=== PATIENT | male | born 1985 | race Caucasian/White ===

== ENCOUNTER 2016-12-24 14:37 | Emergency (ER) | payer SELFPAY ==
[2016-12-24] MEDS ORDERED: ORPHENADRINE CITRATE 60MG/2ML VIAL IM ONE (14:54)
[2016-12-24] MEDS ORDERED: KETOROLAC 30 MG/ML VIAL IM ONE (14:54)
[2016-12-24] MEDS ORDERED: DIAZEPAM 5 MG TABLET PO ONE (14:54)
--- NOTE | 2016-12-24 14:54 | Emergency Department Record ---
History of Present Illness - General Chief complaint: Extremity Problem Stated complaint: R SHOULDER PAIN Time Seen by Provider: 12/24/16 14:46 Source: Patient Mode of Arrival: Ambulatory Limitations: No limitations - History of Present Illness Initial comments: 31 yo male presents with shoulder pain The pain is in the posterior shoulder and gradually worsening. No injury. No warmth or rash. He has pain with lift the arm or turning the neck. MD Complaint: Extremity pain, Joint pain Onset/Timin -: Days(s) Location: Right, Shoulder History of Same: No -: Yes Myalgia Severity scale (1-10): 7 Quality: Sharp, Stabbing, Other Consistency: Constant, Getting worse Improves with: Immobilization Associated Symptoms: Denies other symptoms - Related Data Previous Rx's Medication Instructions Recorded Cyclobenzaprine HCl [Flexeril] 10 mg PO TID #30 tablet 03/21/16 Diazepam [Valium] 5 mg PO Q8H #15 tab 12/24/16 Methylprednisolone [Medrol Dose 0 mg PO UD #1 tab.ds.pk 12/24/16 Pack] Naproxen 500 mg PO BID #20 tablet 12/24/16 Allergies Allergy/AdvReac Type Severity Reaction Status Date / Time No Known Drug Allergies Allergy Verified 12/24/16 14:41 Travel Screening - Travel/Exposure Within Last 30 Days Have you traveled within the last 30 days?: No - Travel/Exposure Within Last Year Have you traveled outside the [place] in the last year?: No - Additonal Travel Details Have you been exposed to anyone with a communicable illness?: No - Travel Symptoms Symptom Screening: None Review of Systems Constitutional: Denies: Chills, Fever, Malaise, Weakness Eyes: Denies: Eye discharge ENT: Denies: Congestion, Throat pain Respiratory: Denies: Cough Cardiovascular: Denies: Chest pain, Syncope Endocrine: Denies: Fatigue Gastrointestinal: Denies: Abdominal pain, Diarrhea, Nausea, Vomiting Genitourinary: Denies: Dysuria, Frequency, Hematuria Musculoskeletal: Reports: As per HPI, Arthralgia, Myalgia, Neck pain Skin: Denies: Bruising, Change in color, Rash Neurological: Denies: Headache, Numbness, Weakness Psychiatric: Denies: Anxiety Hematological/Lymphatic: Denies: Easy bleeding, Easy bruising, Swollen glands Past Medical History - SOCIAL HISTORY Smoking Status: Current every day smoker Alcohol Use: Rare Drug Use Detail:: Marijuana - RESPIRATORY Hx Respiratory Disorders: No - CARDIOVASCULAR Hx Cardio Disorders: No - NEURO Hx Neuro Disorders: No - GI Hx GI Disorders: No - Hx Genitourinary Disorders: No - ENDOCRINE Hx Endocrine Disorders: No - MUSCULOSKELETAL Hx Musculoskeletal Disorders: Yes - PSYCH Hx Psych Problems: No - HEMATOLOGY/ONCOLOGY Hx Hematology/Oncology Disorders: No Family Medical History Any Significant Family History?: No Physical Exam - General General Appearance: Alert, Oriented x3, Cooperative, No acute distress Limitations: No limitations - Head Head exam: Normal inspection - Eye Eye exam: Normal appearance, Conjunctival injection. negative: Periorbital swelling, Scleral icterus - ENT ENT exam: Normal exam, Mucous membranes moist Ear exam: Normal external inspection Nasal Exam: Normal inspection Mouth exam: Normal external inspection - Neck Neck exam: Normal inspection, Tenderness. negative: Full ROM (spasm with turning the head) - Respiratory Respiratory exam: Normal lung sounds bilaterally. negative: Respiratory distress - Cardiovascular Cardiovascular Exam: Regular rate, Normal rhythm, Normal heart sounds Peripheral Pulses: 2+: Radial (R) - Rectal Rectal exam: Deferred - exam: Deferred - Extremities Extremities exam: Normal inspection, Normal capillary refill, Tenderness. negative: Full ROM, Joint swelling, Pedal edema Image of Full Body: 1 - tender posterior shoulder, normal appearance, pain arm raising, normal internal and external rotation - Back Back exam: Reports: Normal inspection. Denies: CVA tenderness (R), CVA tenderness (L) - Neurological Neurological exam: Alert, Normal gait, Oriented X3, Other (machine operator and biceps intact). negative: Altered, Motor sensory deficit - Psychiatric Psychiatric exam: Normal affect, Normal mood - Skin Skin exam: Dry, Intact, Normal color, Warm Course Vital Signs 12/24/16 14:42 Temperature 97.5 F L Pulse Rate 65 Respiratory 18 Rate Blood Pressure 119/69 Pulse Ox 99 - Reevaluation(s) Reevaluation #1: The XR was reviewed No acute process on prelim 12/24/16 15:34 Disposition Disposition: Discharge Clinical Impression: Right shoulder strain Qualifiers: Encounter type: initial encounter Qualified Code(s): S46.911A - Strain of unspecified muscle, fascia and tendon at shoulder and upper arm level, right arm , initial encounter Disposition: Home, Self-Care Condition: (1) Good Instructions: Shoulder Sprain (ED) Additional Instructions: Rest avoiding lifting Return if worse, weak, numb, any new symptoms or concerns Prescriptions: Diazepam [Valium] 5 mg PO Q8H #15 tab Methylprednisolone [Medrol Dose Pack] 0 mg PO UD #1 tab.ds.pk Naproxen 500 mg PO BID #20 tablet Forms: Patient Portal Access Time of Disposition: 15:35
--- NOTE | 2016-12-24 22:37 | RADIOLOGY REPORT ---
EXAM: SHOULDER, RIGHT HISTORY: THE PATIENT HAS A HISTORY OF RIGHT SHOULDER PAIN. TECHNIQUE: Three views of the right shoulder are provided along with comparison x-ray of the right ribs dated 03/21/16. FINDINGS: There is no radiographic evidence of a fracture or dislocation of the right humeral head or humeral neck. Acromioclavicular joint is within normal limits. Right hemithorax is unremarkable. There is a questionable linear lucency identified within the posterior aspect of the glenoid process. Contour irregularity is also noted. This may represent a chronic, nondisplaced fracture of the right glenoid process. If there is further clinical concern, then a CT scan of the right shoulder can be obtained for further evaluation. IMPRESSION: QUESTIONABLE CHRONIC NONDISPLACED FRACTURE OF THE POSTERIOR ASPECT OF THE RIGHT GLENOID PROCESS. IF THERE IS FURTHER CLINICAL CONCERN, THEN A CT SCAN OF THE RIGHT SHOULDER CAN BE OBTAINED FOR FURTHER EVALUATION. JOB NUMBER: [id number] MTDD
== END 2016-12-24 15:43 | disposition home or self-care (01) ==
LOC: ER 14:37
DX: S46.911A Strain of unspecified muscle, fascia and tendon at shoulder and upper arm level, right arm, initial encounter (principal); X58.XXXA Exposure to other specified factors, initial encounter
CPT/HCPCS: 99283 ×2; 96372; 73030; J3490; J1885; J2360

== ENCOUNTER 2017-05-20 10:55 | Emergency (ER) | payer SELFPAY ==
[2017-05-20] MEDS: ORPHENADRINE CITRATE 60MG/2ML VIAL IM ONE (11:20)
[2017-05-20] MEDS: KETOROLAC 30 MG/ML VIAL IM ONE (11:20)
--- NOTE | 2017-05-20 11:30 | Emergency Department Record ---
History of Present Illness - General Chief Complaint: Back Pain/Injury Stated Complaint: BACK PAIN Time Seen by Provider: 05/20/17 11:09 Source: Patient Mode of Arrival: Ambulatory Limitations: No limitations - History of Present Illness Initial Comments: The patient is here due to R lower back pain for 3 days. The onset was with working on his car at home and doing some lifting. The pain is sharp and stabbing and is located in the R lower back and does intermittently radiate down his R leg. Any bending or sitting increases the pain. The patient has no pain when walking or lying supine. He denies any leg numbness, weakness, or any bowel or bladder issues. The patient has a hx of similar issues in the past and it usually gets better with a muscle relaxer. MD Complaint: Back pain Onset/Timin -: Days(s) Place: Home Severity: Moderate Severity scale (1-10): 5 Quality: Stabbing Consistency: Intermittent Context: Unknown - Related Data Previous Rx's Medication Instructions Recorded Cyclobenzaprine HCl [Flexeril] 10 mg PO TID PRN #20 tablet 05/20/17 Naproxen [Naprosyn] 500 mg PO BID #14 tablet. 05/20/17 Allergies Allergy/AdvReac Type Severity Reaction Status Date / Time No Known Drug Allergies Allergy Verified 12/24/16 14:41 Travel Screening - Travel/Exposure Within Last 30 Days Have you traveled within the last 30 days?: No - Travel/Exposure Within Last Year Have you traveled outside the [place] in the last year?: No - Additonal Travel Details Have you been exposed to anyone with a communicable illness?: No - Travel Symptoms Symptom Screening: None Review of Systems Constitutional: Denies: Chills, Fever Eyes: Denies: Eye discharge ENT: Denies: Congestion, Throat pain Respiratory: Denies: Cough, Dyspnea Past Medical History - SOCIAL HISTORY Smoking Status: Current every day smoker Alcohol Use: None Drug Use: Rare Drug Use Detail:: Marijuana - RESPIRATORY Hx Respiratory Disorders: No - CARDIOVASCULAR Hx Cardio Disorders: No - NEURO Hx Neuro Disorders: No - GI Hx GI Disorders: No - Hx Genitourinary Disorders: No - ENDOCRINE Hx Endocrine Disorders: No - MUSCULOSKELETAL Hx Musculoskeletal Disorders: Yes - PSYCH Hx Psych Problems: No - HEMATOLOGY/ONCOLOGY Hx Hematology/Oncology Disorders: No Family Medical History Any Significant Family History?: No Physical Exam - General General Appearance: Alert, Oriented x3, Cooperative, No acute distress - Head Head exam: Atraumatic, Normocephalic, Normal inspection - Eye Eye exam: Normal appearance, PERRL - ENT Throat exam: Normal inspection. negative: Tonsillar erythema, Tonsillar exudate - Neck Neck exam: Normal inspection, Full ROM. negative: Tenderness - Respiratory Respiratory exam: Normal lung sounds bilaterally. negative: Respiratory distress - Cardiovascular Cardiovascular Exam: Regular rate, Normal rhythm, Normal heart sounds - GI/Abdominal GI/Abdominal exam: Soft, Normal bowel sounds. negative: Tenderness - Extremities Extremities exam: Normal inspection, Full ROM, Normal capillary refill, Other ( Neg SLR bilaterally.). negative: Tenderness - Back Back exam: Reports: Normal inspection, Muscle spasm (R lower lumbar.). Denies: Vertebral tenderness - Neurological Neurological exam: Alert, Normal gait, Oriented X3, Reflexes normal. negative: Abnormal gait, Motor sensory deficit Course Vital Signs 05/20/17 11:00 Temperature 97.8 F Pulse Rate 93 H Respiratory 18 Rate Blood Pressure 140/88 Pulse Ox 99 - Reevaluation(s) Reevaluation #1: The patient is doing much better at this time. His pain is much improved and he is up walking with no difficulty or pain. He is ready for home. 05/20/17 11:57 Disposition Disposition: Discharge Clinical Impression: Low back strain Qualifiers: Encounter type: initial encounter Qualified Code(s): S39.012A - Strain of muscle, fascia and tendon of lower back, initial encounter Disposition: Home, Self-Care Condition: (2) Stable Instructions: Low Back Strain (ED) Additional Instructions: Please rest today and tomorrow. Please take the Naprosyn and Flexeril as directed. Follow up with your PCP next week if not better. Return to the ER for any increasing pain, leg numbness, or weakness, or any bowel or bladder incontinence or inability to go the bathroom. Prescriptions: Cyclobenzaprine HCl [Flexeril] 10 mg PO TID PRN #20 tablet PRN Reason: Pain Naproxen [Naprosyn] 500 mg PO BID #14 tablet.dr Forms: Patient Portal Access Time of Disposition: 11:59 Quality - Quality Measures Quality Measures: N/A - Blood Pressure Screening View Details: Yes Does Patient Have Any of the Following: No Blood Pressure Classification: Pre-Hypertensive BP Reading Systolic Measurement: 140 Diastolic Measurement: 88 Screening for High Blood Pressure: < Pre-Hypertensive BP, F/U Documented > [ G8950] Pre-Hypertensive Follow-up Interventions: Referral to alternative/primary care provider.
== END 2017-05-20 12:08 | disposition home or self-care (01) ==
LOC: ER 10:55
DX: S39.012A Strain of muscle, fascia and tendon of lower back, initial encounter (principal); X50.9XXA Other and unspecified overexertion or strenuous movements or postures, initial encounter; Y93.89 Activity, other specified; Y92.008 Other place in unspecified non-institutional (private) residence as the place of occurrence of the external cause
CPT/HCPCS: 99283 ×2; 96372; J1885; J2360

== ENCOUNTER 2018-09-15 12:58 | Emergency (ER) | payer SELFPAY ==
[2018-09-15] MEDS ORDERED: HYDROCODONE/APAP 5/325MG TABLET PO ONE (13:30)
--- NOTE | 2018-09-15 13:30 | Emergency Department Record ---
History of Present Illness - General Chief complaint: Abscess Stated complaint: ABCESS ON TAIL BONE Time Seen by Provider: 09/15/18 13:01 Source: Patient Mode of Arrival: Ambulatory Limitations: No limitations - History of Present Illness Initial comments: The patient is here due to an abscess over his tailbone for the last 3 days. It was draining at one point but now has stopped. He denies any fever, chills, or previous hx of similar issues. complaint: Abscess/boil Onset/Timin -: Days(s) Patient Tetanus UTD (within 5 yrs): Yes (5 years) Severity: Moderate Severity scale (1-10): 9 Quality: Aching, Burning, Sharp Consistency: Constant, Intermittent Treatments Prior to Arrival: None - Related Data Previous Rx's Medication Instructions Recorded Clindamycin HCl [Cleocin HCl] 300 mg PO QID #28 capsule 09/15/18 Allergies Allergy/AdvReac Type Severity Reaction Status Date / Time No Known Drug Allergies Allergy Verified 09/15/18 13:07 Travel Screening - Travel/Exposure Within Last 30 Days Have you traveled within the last 30 days?: No - Travel/Exposure Within Last Year Have you traveled outside the [place] in the last year?: No - Additonal Travel Details Have you been exposed to anyone with a communicable illness?: No - Travel Symptoms Symptom Screening: None Review of Systems Constitutional: Denies: Chills, Fever Eyes: Denies: Eye discharge ENT: Denies: Congestion Respiratory: Denies: Cough, Dyspnea Past Medical History - SOCIAL HISTORY Smoking Status: Current every day smoker Alcohol Use: None Drug Use: None - RESPIRATORY Hx Respiratory Disorders: No - CARDIOVASCULAR Hx Cardio Disorders: No - NEURO Hx Neuro Disorders: No - GI Hx GI Disorders: No - Hx Genitourinary Disorders: No - ENDOCRINE Hx Endocrine Disorders: No - MUSCULOSKELETAL Hx Musculoskeletal Disorders: Yes - PSYCH Hx Psych Problems: No - HEMATOLOGY/ONCOLOGY Hx Hematology/Oncology Disorders: No Family Medical History Any Significant Family History?: Yes Physical Exam - General General Appearance: Alert, Oriented x3, Cooperative, No acute distress - Head Head exam: Atraumatic, Normocephalic - Eye Eye exam: Normal appearance - Rectal Rectal exam: Tenderness (There is a 1 x 3 cm abscess to the superior mid buttock area with minimal surrounding erythema and tenderness.) Course Vital Signs 09/15/18 13:06 Temperature 97.8 F Pulse Rate [ 85 Pulse Ox Probe] Respiratory 18 Rate Blood Pressure 137/83 [Left Arm] Pulse Ox 99 - Reevaluation(s) Reevaluation #1: Procedure note: The abscess was cleansed with betadine and anesth. with 3 cc's Lido 1%. The abscess was then I and D'd with a # 11 blade and a moderate amount of purulence was expressed. The abscess was then probed with a sterile Qtip and dressed with gauze. There were no complications. 09/15/18 13:27 Disposition Disposition: Discharge Clinical Impression: Pilonidal abscess Disposition: Home, Self-Care Condition: (2) Stable Instructions: Abscess Incision and Drainage (ED) Additional Instructions: Please keep dry for 24 hours then soak every few hours for 20 minutes while awake. Take your Motrin or Tylenol for pain and also take the Clindamycin. Please see Dr. Mark later this week for recheck. Return to the ER for any worsening issues or symptoms. Prescriptions: Clindamycin HCl [Cleocin HCl] 300 mg PO QID #28 capsule Referrals: Primitivo Mark [DOCTOR OF OSTEOPATH] - Forms: Patient Portal Access Time of Disposition: 13:30 Quality - Quality Measures Quality Measures: N/A - Blood Pressure Screening View Details: Yes Does Patient Have Any of the Following: No Blood Pressure Classification: Pre-Hypertensive BP Reading Systolic Measurement: 137 Diastolic Measurement: 83 Screening for High Blood Pressure: < Pre-Hypertensive BP, F/U Documented > [ G8950] Pre-Hypertensive Follow-up Interventions: Referral to alternative/primary care provider.
== END 2018-09-15 13:40 | disposition home or self-care (01) ==
LOC: ER 12:58
DX: L05.01 Pilonidal cyst with abscess (principal); F17.210 Nicotine dependence, cigarettes, uncomplicated
CPT/HCPCS: 10080; 99283

== ENCOUNTER 2018-12-23 18:25 | Emergency (ER) | payer SELFPAY ==
[2018-12-23] MEDS ORDERED: DIAZEPAM (VALIUM) 5MG/ML **10ML VIAL IM ONE (18:34)
[2018-12-23] MEDS ORDERED: KETOROLAC 60 MG/2 ML VIAL IM STA (18:34)
[2018-12-23] MEDS ORDERED: CEPHALEXIN 500 MG CAPSULE PO STA (18:34)
--- NOTE | 2018-12-23 18:41 | Emergency Department Record ---
History of Present Illness - General Chief Complaint: Back Pain/Injury Stated Complaint: BACK PAIN Time Seen by Provider: 12/23/18 18:29 Source: Patient Mode of Arrival: Ambulatory Limitations: No limitations - History of Present Illness Initial Comments: 33 yo male presents to ED for evaluation of back spasms/strain of the left lower back. 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 Patient denies taking anything for his pain symptoms, denies fevers, chills, numbness over the groin region, or lower extremity weakness symptoms. Patient denies taking anything for his symptoms. Patient also reports pain to the gluteal cleft region, report previous "cysts" to the affected area. MD Complaint: Back pain Onset/Timin -: Days(s) Similar Symptoms Previously: Yes Place: Work Radiation: None Severity: Moderate Severity scale (1-10): 5 Quality: Aching Consistency: Constant, Intermittent Improves With: None Worsens With: Movement Context: Bending, Turning/twisting - Related Data Previous Rx's Medication Instructions Recorded Cephalexin [Keflex] 500 mg PO QID #27 cap 12/23/18 Diazepam [Valium] 5 mg PO Q8H PRN #15 tab 12/23/18 Naproxen 500 mg PO Q12H #30 tablet 12/23/18 Allergies Allergy/AdvReac Type Severity Reaction Status Date / Time No Known Drug Allergies Allergy Verified 12/23/18 18:34 Travel Screening - Travel/Exposure Within Last 30 Days Have you traveled within the last 30 days?: No - Travel/Exposure Within Last Year Have you traveled outside the [place] in the last year?: No - Additonal Travel Details Have you been exposed to anyone with a communicable illness?: No - Travel Symptoms Symptom Screening: None Review of Systems Constitutional: Denies: Chills, Fever, Malaise, Night sweats Eyes: Denies: Eye discharge, Eye pain ENT: Denies: Congestion, Ear pain, Epistaxis Respiratory: Denies: Cough, Dyspnea Cardiovascular: Denies: Chest pain, Dyspnea on exertion Endocrine: Denies: Fatigue, Heat or cold intolerance Gastrointestinal: Denies: Abdominal pain, Nausea, Vomiting Genitourinary: Denies: Incontinence, Retention Musculoskeletal: Reports: Back pain. Denies: Arthralgia, Gout, Joint swelling Skin: Denies: Bruising, Change in color Neurological: Denies: Abnormal gait, Confusion, Headache, Tingling, Tremors Psychiatric: Denies: Anxiety Hematological/Lymphatic: Denies: Anemia, Blood Clots Past Medical History - SOCIAL HISTORY Smoking Status: Current every day smoker Alcohol Use: None Drug Use: None - RESPIRATORY Hx Respiratory Disorders: No - CARDIOVASCULAR Hx Cardio Disorders: No - NEURO Hx Neuro Disorders: No - GI Hx GI Disorders: No - Hx Genitourinary Disorders: No - ENDOCRINE Hx Endocrine Disorders: No - MUSCULOSKELETAL Hx Musculoskeletal Disorders: Yes Hx Back Injury: Yes - PSYCH Hx Psych Problems: No - HEMATOLOGY/ONCOLOGY Hx Hematology/Oncology Disorders: No Family Medical History Any Significant Family History?: Yes Physical Exam - General General Appearance: Alert, Oriented x3, Cooperative, Moderate distress Limitations: No limitations - Head Head exam: Atraumatic, Normocephalic, Normal inspection Head exam detail: negative: Abrasion, Contusion, Casey's sign, General tenderness, Hematoma, Laceration - Eye Eye exam: Normal appearance. negative: Conjunctival injection, Periorbital swelling, Periorbital tenderness, Scleral icterus - ENT Ear exam: negative: Auricular hematoma, Auricular trauma Nasal Exam: negative: Active bleeding, Discharge, Dried blood, Foreign body Mouth exam: negative: Drooling, Laceration, Muffled voice, Tongue elevation - Neck Neck exam: Normal inspection. negative: Meningismus, Tenderness - Respiratory Respiratory exam: Normal lung sounds bilaterally. negative: Respiratory distress, Rhonchi, Stridor, Wheezes - Cardiovascular Cardiovascular Exam: Regular rate, Normal rhythm, Normal heart sounds - GI/Abdominal GI/Abdominal exam: Soft. negative: Distended, Rebound, Rigid, Tenderness - Rectal Rectal exam: Deferred - exam: Deferred - Extremities Extremities exam: Normal inspection. negative: Pedal edema, Tenderness - Back Back exam: Reports: Paraspinal tenderness (TTP over the left SI joint region). Denies: CVA tenderness (R), CVA tenderness (L) - Neurological Neurological exam: Alert, Normal gait, Oriented X3 - Psychiatric Psychiatric exam: Normal affect, Normal mood - Skin Skin exam: Normal color. negative: Abrasion Type of lesion: negative: abrasion Distribution of rash: Back (Small raised area to the superior, left gluteal cleft region, no fluctuance, no evidence for abscess on examination. C/w possible early infection.) Course Vital Signs 12/23/18 18:28 Temperature 98.2 F Pulse Rate 84 Respiratory 20 Rate Blood Pressure 124/73 Pulse Ox 98 - Reevaluation(s) Reevaluation #1: 12/23/18 19:11 Patient was reassessed, standing up, improved clinically, and appears stable for discharge at this time. All questions were answered, and the patient appears stable for discharge at this time on Naproxsyn, Valium, and Keflex as directed. Disposition Disposition: Discharge Clinical Impression: Cellulitis, gluteal, left Lumbar strain Qualifiers: Encounter type: initial encounter Qualified Code(s): S39.012A - Strain of muscle, fascia and tendon of lower back, initial encounter Disposition: Home, Self-Care Condition: (2) Stable Instructions: Low Back Strain (ED) Additional Instructions: Return to ED if your symptoms worsen or if you have any concerns. Keflex as directed. Follow-up with your family doctor in 3-5 days as directed. Prescriptions: Cephalexin [Keflex] 500 mg PO QID #27 cap Naproxen 500 mg PO Q12H #30 tablet Diazepam [Valium] 5 mg PO Q8H PRN #15 tab PRN Reason: Spasms Forms: Patient Portal Access Time of Disposition: 19:14 Quality - Quality Measures Quality Measures: N/A - Blood Pressure Screening Does Patient Have Any of the Following: No Blood Pressure Classification: Pre-Hypertensive BP Reading Systolic Measurement: 124 Diastolic Measurement: 73 Screening for High Blood Pressure: < Pre-Hypertensive BP, F/U Documented > [G8950] Pre-Hypertensive Follow-up Interventions: Referral to alternative/primary care provider.
== END 2018-12-23 19:15 | disposition home or self-care (01) ==
LOC: ER 18:25
DX: S39.012A Strain of muscle, fascia and tendon of lower back, initial encounter (principal); L03.317 Cellulitis of buttock; F17.210 Nicotine dependence, cigarettes, uncomplicated; X50.0XXA Overexertion from strenuous movement or load, initial encounter; Y99.0 Civilian activity done for income or pay
CPT/HCPCS: 99283; 96372; 99284; J3360; J1885

== ENCOUNTER 2019-02-19 10:58 | Emergency (ER) | payer SELFPAY ==
[2019-02-19] MEDS: HYDROMORPHONE HCL 2 MG/ML VIAL IVP ONE (11:40)
[2019-02-19] MEDS: ONDANSETRON HCL IV 4 MG/2 ML VIAL IVP ONE (11:40)
[2019-02-19] MEDS: CEFAZOLIN 1 Gram 1 GM/50 ML BAG IVPB ONE (11:41)
--- NOTE | 2019-02-19 11:50 | Emergency Department Record ---
History of Present Illness - General Chief Complaint: Ankle/Foot Injury Stated Complaint: NAIL GUN INJURY Time Seen by Provider: 02/19/19 11:17 Source: Patient Mode of Arrival: Ambulatory Limitations: No limitations - History of Present Illness Initial Comments: nail gun shot nail into foot MD Complaint: Foot injury Onset/Timin -: Minutes(s) Type of Injury: Puncture wound Place: Home Severity: Moderate Severity scale (1-10): 9 Improves With: Nothing Worsens With: Movement, Palpation, Weight bearing Context: Other Associated Symptoms: Unable to bear weight - Related Data Home Medications Medication Instructions Recorded Confirmed Last Taken No Home Med [NO HOME MEDS] 02/19/19 02/19/19 Unknown Allergies Allergy/AdvReac Type Severity Reaction Status Date / Time No Known Drug Allergies Allergy Verified 02/19/19 11:13 Travel Screening - Travel/Exposure Within Last 30 Days Have you traveled within the last 30 days?: No - Travel/Exposure Within Last Year Have you traveled outside the [place] in the last year?: No - Additonal Travel Details Have you been exposed to anyone with a communicable illness?: No - Travel Symptoms Symptom Screening: None Review of Systems Reviewed: No additional complaints except as noted below Constitutional: Reports: As per HPI. Denies: Chills, Fever, Malaise, Night sweats, Weakness, Weight change Eyes: Reports: As per HPI. Denies: Eye discharge, Eye pain, Photophobia, Vision change ENT: Reports: As per HPI. Denies: Congestion, Dental pain, Ear pain, Epistaxis, Hearing loss, Throat pain Respiratory: Reports: As per HPI. Denies: Cough, Dyspnea, Hemoptysis, Stridor, Wheezes Cardiovascular: Reports: As per HPI. Denies: Arrhythmia, Chest pain, Dyspnea on exertion, Edema, Murmurs, Orthopnea, Palpitations, Paroxysmal nocturnal dyspnea, Rheumatic Fever, Syncope Endocrine: Reports: As per HPI. Denies: Fatigue, Heat or cold intolerance, Polydipsia, Polyuria Gastrointestinal: Reports: As per HPI. Denies: Abdominal pain, Constipation, Diarrhea, Hematemesis, Hematochezia, Melena, Nausea, Vomiting Genitourinary: Reports: As per HPI. Denies: Dysuria, Frequency, Hematuria, Incontinence, Retention, Testicular pain, Testicular mass, Urgency Musculoskeletal: Reports: As per HPI. Denies: Arthralgia, Back pain, Gout, Joint swelling, Myalgia, Neck pain Skin: Reports: As per HPI. Denies: Bruising, Change in color, Change in hair/nails, Lesions, Pruritus, Rash Neurological: Reports: As per HPI. Denies: Abnormal gait, Confusion, Headache, Numbness, Paresthesias, Seizure, Tingling, Tremors, Vertigo, Weakness Psychiatric: Reports: As per HPI. Denies: Anxiety, Auditory hallucinations, Depression, Homicidal thoughts, Suicidal thoughts, Visual hallucinations Hematological/Lymphatic: Reports: As per HPI. Denies: Anemia, Blood Clots, Easy bleeding, Easy bruising, Swollen glands Past Medical History - SOCIAL HISTORY Smoking Status: Current every day smoker Alcohol Use: None Drug Use: Heavy Drug Use Detail:: Marijuana - RESPIRATORY Hx Respiratory Disorders: No - CARDIOVASCULAR Hx Cardio Disorders: No - NEURO Hx Neuro Disorders: No - GI Hx GI Disorders: No - Hx Genitourinary Disorders: No - ENDOCRINE Hx Endocrine Disorders: No - MUSCULOSKELETAL Hx Musculoskeletal Disorders: Yes Hx Back Injury: Yes - PSYCH Hx Psych Problems: No - HEMATOLOGY/ONCOLOGY Hx Hematology/Oncology Disorders: No Family Medical History Any Significant Family History?: No Physical Exam - General General Appearance: Alert, Oriented x3, Cooperative - Head Head exam: Normal inspection - Eye Eye exam: Normal appearance, PERRL, EOMI Pupils: Normal accommodation - ENT ENT exam: Normal exam, Mucous membranes moist, Normal external ear exam, Normal orophraynx, TM's normal bilaterally Ear exam: Normal external inspection. negative: External canal tenderness Nasal Exam: Normal inspection. negative: Discharge, Sinus tenderness Mouth exam: Normal external inspection, Tongue normal Teeth exam: Normal inspection. negative: Dental caries Throat exam: Normal inspection. negative: Tonsillar erythema, Tonsillar exudate - Neck Neck exam: Normal inspection, Full ROM. negative: Tenderness - Respiratory Respiratory exam: Normal lung sounds bilaterally. negative: Respiratory distress - Cardiovascular Cardiovascular Exam: Regular rate, Normal rhythm, Normal heart sounds - GI/Abdominal GI/Abdominal exam: Soft, Normal bowel sounds. negative: Tenderness - Rectal Rectal exam: Deferred - exam: Deferred - Extremities Extremities exam: Normal inspection, Full ROM, Normal capillary refill, Tenderness Image of Feet: 1 - nail through boot into foot - Back Back exam: Reports: Normal inspection, Full ROM. Denies: Muscle spasm, Rash noted, Tenderness - Neurological Neurological exam: Alert, CN II-XII intact, Normal gait, Oriented X3 - Psychiatric Psychiatric exam: Normal affect, Normal mood - Skin Skin exam: Dry, Intact, Normal color, Warm Course Vital Signs 02/19/19 02/19/19 11:02 11:14 Temperature 97.8 F 99.9 F H Pulse Rate 75 Pulse Rate [ 79 Pulse Ox Probe] Respiratory 18 20 Rate Blood Pressure 114/74 Blood Pressure 114/74 [Left Arm] Pulse Ox 97 99 - Reevaluation(s) Reevaluation #1: 02/19/19 13:07 d/w dr hathaway Disposition Disposition: Transfer Clinical Impression: Nail wound of right foot Qualifiers: Encounter type: initial encounter Qualified Code(s): S91.331A - Puncture wound without foreign body, right foot, initial encounter Disposition: Home, Self-Care Transfer [facility] Reason For Transfer: needs orthopedics Accepting Physician: dr hathaway and kit Time Discussed w/Accepting Physician: 13:11 Condition: (1) Good Forms: Patient Portal Access Quality - Quality Measures Quality Measures: N/A - Blood Pressure Screening Does Patient Have Any of the Following: No Blood Pressure Classification: Normal BP Reading Systolic Measurement: 114 Diastolic Measurement: 74 Screening for High Blood Pressure: < Normal BP, F/U Not Required > [G8783]
[2019-02-19] MEDS: Diph,Pert(Acell),Tet Vac 0.5 ML SYR IM ONE (11:57)
--- NOTE | 2019-02-20 10:16 | RADIOLOGY REPORT ---
EXAM: RIGHT FOOT, THREE VIEWS HISTORY: NAIL PUNCTURE INTO FOOT THROUGH WORK BOOT WITH NAIL GUN. TECHNIQUE: Three views of the right foot were obtained. Comparison: None. Encounter: Initial. FINDINGS: The examination is limited by the patient's work boot. A metallic nail is noted in place via a dorsal to plantar and distal to proximal approach. It appears to course along the lateral margin of the third metatarsal head. It is indeterminate whether there is associated cortical disruption. The osseous structures are otherwise normal in appearance and the articular relations are otherwise maintained. IMPRESSION: 1. LIMITED EXAMINATION. 2. METALLIC NAIL IN PLACE, DESCRIBED ABOVE. IT APPEARS TO COURSE ALONG THE LATERAL MARGIN OF THE THIRD METATARSAL HEAD AND MTP JOINT. IT IS INDETERMINATE WHETHER THIS TRANSGRESSES THE JOINT CAPSULE OR CORTEX OF THE METATARSAL HEAD. JOB NUMBER: [id number] [facility]
== END 2019-02-19 13:47 | disposition home or self-care (01) ==
LOC: ER 10:58
DX: S91.331A Puncture wound without foreign body, right foot, initial encounter (principal); W29.4XXA Contact with nail gun, initial encounter; Y92.009 Unspecified place in unspecified non-institutional (private) residence as the place of occurrence of the external cause; F17.210 Nicotine dependence, cigarettes, uncomplicated
CPT/HCPCS: 90715; 96365; 96372; 96375; 99285; J2405

== ENCOUNTER 2019-06-12 08:40 | Emergency (ER) | payer SELFPAY ==
--- NOTE | 2019-06-12 08:59 | Emergency Department Record ---
History of Present Illness - General Stated complaint: RIGHT SHOULDER PAIN 3 WEEKS Time Seen by Provider: 06/12/19 08:42 Source: Patient Mode of Arrival: Ambulatory Limitations: No limitations - History of Present Illness Initial comments: 33 yo male presents with right shoulder pain. The pain has been ongoing for about 3 weeks. The pain is anterior. No warmth, redness, fever or swelling. He has had pain in the past. He denies any specific injury. No fever. He is a vehicle assembly inspector by profession. He has pain with lifting and external rotation. The pain is sharp. No other recent changes in his health. MD Complaint: Extremity pain, Joint pain -: Days(s) Location: Right History of Same: Yes -: Yes Arthralgia Radiation: Proximal Quality: Aching Consistency: Constant Improves with: Immobilization Worsens with: Palpation, Weight bearing Associated Symptoms: Denies other symptoms - Related Data Previous Rx's Medication Instructions Recorded Methylprednisolone [Medrol Dose 4 mg PO DAILY #1 tab.ds.pk 06/12/19 Pack] Allergies Allergy/AdvReac Type Severity Reaction Status Date / Time No Known Drug Allergies Allergy Verified 06/12/19 08:50 Review of Systems Constitutional: Denies: Chills, Fever, Malaise, Weakness Eyes: Denies: Eye discharge ENT: Denies: Congestion, Throat pain Respiratory: Denies: Cough, Dyspnea Cardiovascular: Denies: Chest pain, Syncope Endocrine: Denies: Fatigue Gastrointestinal: Denies: Abdominal pain, Diarrhea, Nausea, Vomiting Genitourinary: Denies: Dysuria, Frequency, Hematuria Musculoskeletal: Reports: As per HPI, Arthralgia Skin: Denies: Bruising, Change in color, Rash Neurological: Denies: Numbness, Weakness Psychiatric: Denies: Anxiety Hematological/Lymphatic: Denies: Easy bleeding, Easy bruising Past Medical History - SOCIAL HISTORY Smoking Status: Current every day smoker Drug Use: Heavy Drug Use Detail:: Marijuana - RESPIRATORY Hx Respiratory Disorders: No - CARDIOVASCULAR Hx Cardio Disorders: No - NEURO Hx Neuro Disorders: No - GI Hx GI Disorders: No - Hx Genitourinary Disorders: No - ENDOCRINE Hx Endocrine Disorders: No - MUSCULOSKELETAL Hx Musculoskeletal Disorders: Yes Hx Back Injury: Yes - PSYCH Hx Psych Problems: No - HEMATOLOGY/ONCOLOGY Hx Hematology/Oncology Disorders: No Physical Exam - General General Appearance: Alert, Oriented x3, Cooperative, No acute distress Limitations: No limitations - Head Head exam: Atraumatic, Normal inspection - Eye Eye exam: Normal appearance, PERRL. negative: Conjunctival injection, Scleral icterus - ENT ENT exam: Normal exam Ear exam: Normal external inspection Nasal Exam: Normal inspection Mouth exam: Normal external inspection - Neck Neck exam: Normal inspection, Full ROM. negative: Tenderness - Respiratory Respiratory exam: Normal lung sounds bilaterally. negative: Respiratory distress - Cardiovascular Cardiovascular Exam: Regular rate, Normal rhythm, Normal heart sounds Peripheral Pulses: 2+: Radial (R) - Rectal Rectal exam: Deferred - exam: Deferred - Extremities Extremities exam: Normal inspection, Tenderness. negative: Joint swelling Image of Full Body: 1 - tender anterior, biceps intact, pain with external rotation, pain with abduction and flexion, normal inspection - Back Back exam: Denies: CVA tenderness (R), CVA tenderness (L) - Neurological Neurological exam: Alert, Oriented X3. negative: Motor sensory deficit - Psychiatric Psychiatric exam: Normal affect, Normal mood. negative: Agitated, Anxious - Skin Skin exam: Dry, Intact, Normal color, Warm Course - Reevaluation(s) Reevaluation #1: 06/12/19 09:24 The XR demonstrates no fracture or dislocation. Nonspecific resorption of the distal clavicle may be post traumatic. The patient was given a copy of the XR report and we reviewed the XR. He has had pain in the shoulder in the past on and off. I informed him he may need follow up MRI if the pain continues I encouraged him to call his PCP to set up short term follow up in the next week to assess if better Disposition Disposition: Discharge Clinical Impression: Right shoulder strain, Acquired clavicle deformity Disposition: Home, Self-Care Condition: (1) Good Instructions: Shoulder Sprain (ED) Additional Instructions: Ice the shoulder three times daily Call to schedule an appointment with a new doctor If the pain continues you may need a follow up with orthopedics or MRI in the next 1-2 weeks Use the sling for comfort. Remove the arm 2-3 times daily to prevent stiffness Prescriptions: Methylprednisolone [Medrol Dose Pack] 4 mg PO DAILY #1 tab.ds.pk Referrals: MIKE WORTHINGTON [MEDICAL DOCTOR] - Time of Disposition: 09:30 Quality - Quality Measures Quality Measures: N/A - Blood Pressure Screening Does Patient Have Any of the Following: No Blood Pressure Classification: Pre-Hypertensive BP Reading Systolic Measurement: 130 Diastolic Measurement: 83 Screening for High Blood Pressure: < Pre-Hypertensive BP, F/U Documented > [G8950] Pre-Hypertensive Follow-up Interventions: Referral to alternative/primary care provider.
[2019-06-12] MEDS ORDERED: IBUPROFEN 600 MG TABLET PO ONE (09:22)
--- NOTE | 2019-06-12 09:23 | RADIOLOGY REPORT ---
EXAMINATION: Right Shoulder, Complete Minimum Two Views EXAM DATE: 06/12/2019 9:09 AM TECHNIQUE: AP, Grashey, and axillary INDICATION: shoulder pain three weeks COMPARISON: None ENCOUNTER: Initial FINDINGS: Normal bony architecture. No acute fracture or dislocation. Nonspecific resorption distal clavicle ma y be posttraumatic IMPRESSION: No acute fracture or dislocation. Nonspecific resorption distal clavicle. Follow-up MRI if symptoms p ersist Dictated by: Jeff Javier MD on 06/12/2019 9:18 AM. .
== END 2019-06-12 10:00 | disposition home or self-care (01) ==
LOC: ER 08:40
DX: S46.911A Strain of unspecified muscle, fascia and tendon at shoulder and upper arm level, right arm, initial encounter (principal); F17.210 Nicotine dependence, cigarettes, uncomplicated; M95.8 Other specified acquired deformities of musculoskeletal system; X58.XXXA Exposure to other specified factors, initial encounter
CPT/HCPCS: 99283